=== PATIENT | male | born 1995 | race Caucasian/White ===

== ENCOUNTER 2017-02-27 20:30 | Emergency (ER) | payer OTHER ==
[~2017-02-27] VITALS: Ht 172.7 cm; Wt 97.7 kg
[~2017-02-27 20:30] MED LIST: PRILOSEC 20MG20 MG PO
[2017-02-27 20:34] VITALS: TEMP 98.9
[2017-02-27 23:08] VITALS: BP 102/59; PULSE 123
== END 2017-02-27 23:08 | disposition home or self-care (01) ==
LOC: COL.ER 20:30
DX: T18.128A Food in esophagus causing other injury, initial encounter (principal); R13.12 Dysphagia, oropharyngeal phase; K22.2 Esophageal obstruction; F41.9 Anxiety disorder, unspecified; F32.9 Major depressive disorder, single episode, unspecified
CPT/HCPCS: J1610; J2060; J2250; J2405; J3010; J7030

== ENCOUNTER 2019-02-01 15:06 | Emergency (ER) | payer SELFPAY ==
[~2019-02-01] VITALS: Ht 172.7 cm; Wt 100.0 kg
[2019-02-01 15:10] VITALS: TEMP 99.2
[2019-02-01 16:27] VITALS: BP 125/79; PULSE 94
== END 2019-02-01 16:30 | disposition home or self-care (01) ==
LOC: COL.ER 15:06
DX: S01.81XA Laceration without foreign body of other part of head, initial encounter (principal); Z23 Encounter for immunization; V19.9XXA Pedal cyclist (driver) (passenger) injured in unspecified traffic accident, initial encounter; Y92.410 Unspecified street and highway as the place of occurrence of the external cause